=== PATIENT | male | born 1995 | race Two or more races ===

== ENCOUNTER 2022-01-22 01:13 | Emergency (ER) | payer OTHER ==
[~2022-01-22] VITALS: Ht 177.8 cm; Wt 59.0 kg
[2022-01-22] MEDS ORDERED: MUCINEX DM ER1 EACH PO (06:47)
[2022-01-22] MEDS ORDERED: LEVALBUTER0.63 MG/3 IH (06:47)
[2022-01-22] MEDS ORDERED: ACETAMINOPHEN650 M2 PO (06:47)
[2022-01-22] MEDS ORDERED: OSEL75CA PO (06:47)
[2022-01-22] MEDS ORDERED: BUDESONIDE0.5 MG/21 IH (06:47)
== END 2022-01-22 07:19 | disposition home or self-care (01) ==
LOC: ER 01:13
DX: J10.1 Influenza due to other identified influenza virus with other respiratory manifestations (principal); Z20.822 Contact with and (suspected) exposure to COVID-19